=== PATIENT | male | born 1970 | race Caucasian/White ===

== ENCOUNTER 2024-02-04 19:58 | Emergency (ER) | payer OTHER ==
[~2024-02-04] VITALS: Ht 182.9 cm; Wt 113.3 kg
[2024-02-04] MEDS ORDERED: ATENOLOL100 MG PO (20:21)
[2024-02-04] MEDS ORDERED: METFORMIN HCL1000 M1 PO (20:22)
[2024-02-04] MEDS ORDERED: OMEPRAZOLE20 MG PO (20:22)
[2024-02-04] MEDS ORDERED: BUPROPION XL450 MG PO (20:23)
[2024-02-04] MEDS ORDERED: ADDERALL 20 MG20 MG PO (20:23)
[2024-02-04] MEDS ORDERED: ZESTRIL5 MG PO (20:24)
[2024-02-04] MEDS ORDERED: LAMICTAL200 MG PO (20:24)
[2024-02-04] MEDS ORDERED: KETOROLAC TROMETHAMINE 60 MG/2 ML VIAL IM ONE (20:30)
[2024-02-04] MEDS ORDERED: diazePAM 10 MG/2 ML SYR IM ONE (20:30)
[2024-02-04] MEDS ORDERED: HYDROCODON-ACE1 EA10 PO (21:18)
[2024-02-04] MEDS ORDERED: HYDROCODONE BIT/ACETAMINOPHEN 5/325 MG 1 TAB HOME.PACK PO ONE (21:30)
[2024-02-04 21:35] VITALS: BP 126/80
[2024-02-04] MEDS ORDERED: ONDANSETRON ODT8 MG PO (21:35)
[2024-02-04] MEDS ORDERED: ONDANSETRON 4 MG HOME.PACK SL ONE (21:45)
== END 2024-02-04 21:35 | disposition home or self-care (01) ==
LOC: ED 19:58
DX: S22.080A Wedge compression fracture of T11-T12 vertebra, initial encounter for closed fracture (principal); I10 Essential (primary) hypertension; E11.9 Type 2 diabetes mellitus without complications; K21.9 Gastro-esophageal reflux disease without esophagitis; F90.9 Attention-deficit hyperactivity disorder, unspecified type; E78.5 Hyperlipidemia, unspecified; Z79.84 Long term (current) use of oral hypoglycemic drugs; Z79.899 Other long term (current) drug therapy; W18.2XXA Fall in (into) shower or empty bathtub, initial encounter
CPT/HCPCS: 72080; 73030; 96372; 99283-25; A9270; J1885; J3360